=== PATIENT | female | born 1995 | race African-American/Black ===

== ENCOUNTER 2019-09-14 17:44 | Emergency (ER) | payer OTHER, SELFPAY ==
[2019-09-14 17:55] VITALS: BP 113/71; PULSE 86; RESP 16; TEMP 36.8; O2SAT 100
--- NOTE | 2019-09-14 18:04 | PC.NURSE ---
in br to obtain ua spec.
--- NOTE | 2019-09-14 18:15 | ED.NAVMDI ---
HPI - Nausea/Vomiting/Diarrhea General Chief complaint: Nausea/Vomiting/Diarrhea Stated complaint: Nausea History of Present Illness HPI Narrative: Patient is a 24-year-old female who presents with denies past medical history. Last menstrual period was 08/28. Patient denies abdominal cramping, pelvic pain, vaginal discharge, diarrhea or other complaints. Patient appears well during assessment. She denies pain. MD elicited complaint: nausea Related Data Home Medications Medication Instructions Recorded Confirmed No Home Medications 09/14/19 09/14/19 Allergies Allergy/AdvReac Type Severity Reaction Status Date / Time No Known Allergies Allergy Unverified 09/26/17 11:12 Review of Systems Review of Systems: Narrative: CONSTITUTIONAL: Denies fever, chills, or sweats. EYES: Denies visual changes, redness, or discharge. ENT: Denies rhinorrhea, congestion, sore throat, or otalgia. CARDIOVASCULAR: Denies chest pain, palpitations, or edema. RESPIRATORY: Denies cough or dyspnea. GASTROINTESTINAL: Denies abdominal pain, vomiting, or diarrhea. Reports nausea GENITOURINARY: Denies dysuria or hematuria. SKIN: Denies rash or itching. MUSCULOSKELETAL: Denies back pain, joint pain, or myalgia. NEUROLOGIC: Denies headache, numbness, dizziness, or weakness. PSYCHIATRIC: Denies anxiety or depression. [facility] Past Medical History Medical History No significant past medical history Surgical History Surgical History No significant past surgical history Social History Social History (Updated 09/14/19 @ 18:21 by DAVID Hall) Smoking status: Never smoker Substance use: never Living arrangements: with family Occupation/Education: unemployed Gender identity (if verbalized by the patient): Female Exam Narrative: Exam Narrative: GENERAL: Well-appearing, well-nourished, and in no acute distress. HEAD: Normocephalic, atraumatic. EYES: EOMI. No redness or drainage. Conjunctiva are normal. ENT: Mucous membranes pink and moist. Nares clear. No rhinorrhea. TMs normal bilaterally. Throat normal. Uvula midline. NECK: AROM. Supple. No lymphadenopathy. CHEST: No respiratory distress. Clear to auscultation. HEART: Regular rate and rhythm. No murmur appreciated. Normal peripheral pulses. GI: Soft, nontender without rebound, or guarding. No distention. Bowel sounds normal in all quadrants. MUSCULOSKELETAL: No bony tenderness. EXTREMITIES: Normal range of motion. No edema. SKIN: Warm, dry, no rash. NEURO: No focal deficits. Alert and oriented x3. Gait steady. PSYCH: Normal affect. No signs of depression or anxiety. Course Vital Signs Vital signs: Vital Signs Temperature 36.8 C 09/14/19 17:55 Pulse Rate 86 09/14/19 17:55 Respiratory Rate 16 09/14/19 17:55 Blood Pressure 113/71 09/14/19 17:55 Pulse Oximetry 100 09/14/19 17:55 Temperature 36.8 C 09/14/19 17:55 Pulse Rate 86 09/14/19 17:55 Respiratory Rate 16 09/14/19 17:55 Blood Pressure 113/71 09/14/19 17:55 Pulse Oximetry 100 09/14/19 17:55 MDM - Nausea/Vomiting/Diarrhea MDM Narrative Medical decision making narrative: Patient's UA reveals no UTI, patient is not . Patient has vague complaints of nausea. Discussed with patient the need to follow-up with PCP. Patient agrees. Patient started on ODT Zofran with referral for follow-up. Patient agrees with plan of care. Patient is stable for discharge to home with outpatient follow-up as discussed. Lab Data Labs: Urine Glucose Negative Reference Range: Negative Urine Bilirubin Negative Reference Range: Negative Urine Ketone Negative Reference Range: Negative Urine Specific [place] 1.025 Reference Range:1.001-1.035 Urine Blood
== END 2019-09-14 18:30 | disposition home or self-care (01) ==
PROVIDERS: Emergency Provider Nurse Practitioner
DX: R11.0 Nausea (principal)
CPT/HCPCS: 81003; 81025; 99212; G0463